=== PATIENT | male | born 1995 | race Caucasian/White ===

== ENCOUNTER 2022-03-30 04:11 | Emergency (ER) | payer OTHER ==
[~2022-03-30] VITALS: Ht 175.3 cm; Wt 77.2 kg
[2022-03-30 04:28] VITALS: BP 149/93
[2022-03-30] MEDS ORDERED: CYCL-837 PO (05:13)
[2022-03-30] MEDS ORDERED: KETOROLAC TROMETH 60MG/2ML VIAL IM ONE (05:15)
== END 2022-03-30 05:24 | disposition home or self-care (01) ==
LOC: ER 04:11
DX: M54.9 Dorsalgia, unspecified (principal); G89.29 Other chronic pain; F17.210 Nicotine dependence, cigarettes, uncomplicated; Z88.0 Allergy status to penicillin; Z88.1 Allergy status to other antibiotic agents
CPT/HCPCS: 96372; 99283; J1885

== ENCOUNTER 2023-12-29 00:16 | Emergency (ER) | payer OTHER ==
[~2023-12-29] VITALS: Ht 175.3 cm; Wt 81.6 kg
[~2023-12-29 00:16] MED LIST: CYCL-837 PO
[2023-12-29] MEDS ORDERED: KETOROLAC TROMETH 30 MG/ML 1ML VIAL IV ONE (00:45)
[2023-12-29] MEDS ORDERED: SODIUM CHLORIDE 0.9% 1,000 ML IV ONE (00:45)
[2023-12-29 01:03] LABS: Urine Bacteria None Seen /hpf (None Seen)
[2023-12-29 01:22] LABS: Basophils # (auto) 0.1 10 ^3/uL (0-0.2); Eosinophils # (auto) 0.3 10 ^3/uL (0-0.8); Eosinophils % (auto) 2.7 % (0.0-7.0); Hematocrit 46.2 % (41.0-53.0); Hemoglobin 16.4 g/dL (13.5-17.5); Lymphocytes % (auto) 37.2 % (10.0-50.0); Mean Corpuscular Hemoglobin 31.7 pg (28.0-32.0); Mean Corpuscular Hgb Conc. 35.5 g/dL (32.0-36.0); Mean Corpuscular Volume 89.3 fL (80.0-100.0); Monocytes # (auto) 1.1 10 ^3/uL (0-1.3); Monocytes % (auto) 10.2 % (0.0-12.0); Neutrophils # (auto) 5.3 10 ^3/uL (1.6-8.6); Neutrophils % (auto) 48.9 % (37.0-80.0); Nucleated Red Blood Cells % 0.1 %; Red Blood Cells 5.17 10^6/uL (4.5-5.90); Red Cell Distribution Width 12.7 % (11.8-14.3); White Blood Cell 10.8 10^3/uL (4.4-10.8)
[2023-12-29 01:23] LABS: Chloride 104 mmol/L (98-107); Sodium 140 mmol/L (136-145)
[2023-12-29 01:24] LABS: Anion Gap 6 (5-15); Carbon Dioxide 30 mmol/L (20-30)
[2023-12-29 01:25] LABS: Calcium 9.9 mg/dL (8.7-10.4)
[2023-12-29 01:29] LABS: BUN/Creatinine Ratio 7.8 (10.0-20.0); Blood Urea Nitrogen 8 mg/dL (9-23); Glucose 78 mg/dL (74-106)
[2023-12-29 01:39] LABS: Urine Blood Negative /uL (Negative); Urine Clarity Clear (Clear); Urine Color Yellow (Yellow); Urine Mucus FEW (None Seen); Urine Protein, UAD TRACE (Negative); Urine Specific Gravity 1.034 (1.001-1.035); Urine Urobilinogen 2 mg/dL (Negative); Urine WBC 2 /hpf (0 - 3)
[2023-12-29] MEDS: TAMSULOSIN HYDROCHLORIDE 0.4 MG CAP PO ONE (04:02)
[2023-12-29 04:05] VITALS: BP 128/83; PULSE 52; RESP 16; TEMP 98.1; O2SAT 97
== END 2023-12-29 04:15 | disposition home or self-care (01) ==
LOC: ER 00:16
DX: N50.812 Left testicular pain (principal); R10.32 Left lower quadrant pain; F17.210 Nicotine dependence, cigarettes, uncomplicated; Z87.442 Personal history of urinary calculi; Z90.89 Acquired absence of other organs; Z88.0 Allergy status to penicillin; Z88.1 Allergy status to other antibiotic agents
CPT/HCPCS: 36415; 74018; 76870; 80048; 81001; 85025